=== PATIENT | female | born 1995 | race Caucasian/White ===

== ENCOUNTER 2020-02-04 05:07 | Inpatient (IN) | payer OTHER ==
[2020-02-04] MEDS ORDERED: PROMETHAZINE HCL 25 MG/1 ML VIAL IVPB ONE (06:45)
[2020-02-04] MEDS ORDERED: ELECTROLYTE-148 SOLN 1,000 ML IV SCH (06:45)
[2020-02-04] MEDS ORDERED: BUTORPHANOL TARTRATE 1 MG/ML VIAL IVPB ONE (06:45)
[2020-02-04 06:52] VITALS: BMI 37.9
--- NOTE | 2020-02-04 06:53 | HP ---
Past Medical History - Primary Care Physician PCP:: Zeny Givens - Admission Chief Complaint: Labor History of Present Illness: 24 yo G1 EDC 02/11/2020 EGA 39 weeks admitted due leaking fluid and labor Limitations to Obtaining History: No Limitations - Past Medical History ...: 1 Heme/Onc: Yes: Anemia - Past Surgical History Past Surgical History: Yes: None Hx Myomectomy: No Hx Transabdominal Cerclage: No - Smoking History Have you smoked in the past 12 months: No - Alcohol/Substance Use Hx Alcohol Use: No History of Substance Use: reports: None - Social History Usual Living Arrangement: Yes: With Spouse, With Parent Do you think of yourself as: Straight/Heterosexual History of Recent Travel: No Home Medications - Allergies Allergies/Adverse Reactions: Allergies Allergy/AdvReac Type Severity Reaction Status Date / Time No Known Allergies Allergy Verified 02/04/20 06:16 - Home Medications Home Medications: Ambulatory Orders Ferrous Sulfate [Iron] 1 tab PO DAILY 02/04/20 Pnv No.95/Ferrous Fum/Folic AC [ Vitamin Tablet] 1 tab PO DAILY 02/04/20 Review of Systems - Review of Systems Constitutional: reports: No Symptoms Eyes: reports: No Symptoms HENT: reports: No Symptoms Neck: reports: No Symptoms Cardiovascular: reports: No Symptoms Respiratory: reports: No Symptoms Gastrointestinal: reports: Abdominal Pain Genitourinary: reports: No Symptoms Breasts: reports: No Symptoms Reported Musculoskeletal: reports: No Symptoms Integumentary: reports: No Symptoms Neurological: reports: No Symptoms Endocrine: reports: No Symptoms Hematology/Lymphatic: reports: No Symptoms Psychiatric: reports: No Symptoms Physical Exam - Maternity Constitutional: Yes: Well Nourished, No Distress Neck: Yes: WNL Breast(s): Yes: WNL - Abdominal Exam/OB Fundal Height: 39 Number of Fetuses: Single Presentation: Vertex Contractions: Yes Regularity: Irregular Monitor Mode: External Category: I Decelerations: None - Vaginal Exam/OB Dilatation (cm): 3 Effacement (%): 100 Amniotic Membrane Status: Leaking Amniotic Fluid: Yes: Clear Presentation: Vertex/Position Station: -1 - Physical Exam Musculoskeletal: Yes: WNL Extremities: Yes: WNL Edema: No Psychiatric: Yes: WNL, Alert, Oriented Hemorrhage Risk Assessment - Risk Factors Risk Score: 0 Risk Level: Low Risk Problem List - Problems (1) 39 weeks gestation of Problems reviewed: Yes Code(s): Z3A.39 - 39 WEEKS GESTATION OF (2) Labor established Problems reviewed: Yes Code(s): [id number] - Assessment/Plan IUP a 39 week labor established GBS+ Cat 1 Plan admit GBS protocol ambulate
[2020-02-04] MEDS ORDERED: AMPICILLIN - 2 GM in SODIUM CHLORIDE 100 ML IVPB ONE (07:01)
[2020-02-04] MEDS ORDERED: AMPICILLIN SODIUM 2 GM VIAL ONE (07:13)
[2020-02-04 07:30] LABS: BASO % 0.2 % (0-2.0); EOS % 1.4 % (0-4.5); HEMOGLOBIN 12.5 GM/dL (10.7-15.3); LYMPH % 21.2 % (8-40); MCH 28.8 pg (25.7-33.7); MCHC 33.8 g/dl (32.0-36.0); MEAN CELL VOLUME 85.1 fl (80-96); MEAN PLT VOLUME 8.2 fl (7.5-11.1); NEUT % 72.2 % (42.8-82.8); PLATELET COUNT 258 K/MM3 (134-434); RBC 4.35 M/mm3 (3.60-5.2); RDW 17.7 % (11.6-15.6); WHITE BLOOD COUNT 6.5 K/mm3 (4.0-10.0)
[2020-02-04 07:45] LABS: INR 0.95 (0.83-1.09); PROTHROMBIN TIME (PATIENT) 11.2 SEC (9.7-13.0)
[2020-02-04 07:47] LABS: ACTIVATED PTT 31.3 SECONDS (25.2-36.5)
--- NOTE | 2020-02-04 07:52 | PN ---
Progress Note (short form) - Note Progress Note: Pt desires epidural - will call anesthesia Cat 1 GBS positive CBC WBC 6.5 K/mm3 (4.0-10.0) 02/04/20 06:30 RBC 4.35 M/mm3 (3.60-5.2) 02/04/20 06:30 Hgb 12.5 GM/dL (10.7-15.3) 02/04/20 06:30 Hct 37.0 % (32.4-45.2) 02/04/20 06:30 MCV 85.1 fl (80-96) 02/04/20 06:30 MCH 28.8 pg (25.7-33.7) 02/04/20 06:30 MCHC 33.8 g/dl (32.0-36.0) 02/04/20 06:30 RDW 17.7 % (11.6-15.6) H 02/04/20 06:30 Plt Count 258 K/MM3 (134-434) 02/04/20 06:30 MPV 8.2 fl (7.5-11.1) 02/04/20 06:30 Absolute Neuts (auto) 4.7 K/mm3 (1.5-8.0) 02/04/20 06:30 Neutrophils % 72.2 % (42.8-82.8) 02/04/20 06:30 Lymphocytes % 21.2 % (8-40) 02/04/20 06:30 Monocytes % 5.0 % (3.8-10.2) 02/04/20 06:30 Eosinophils % 1.4 % (0-4.5) 02/04/20 06:30 Basophils % 0.2 % (0-2.0) 02/04/20 06:30 Nucleated RBC % 0 % (0-0) 02/04/20 06:30 Problem List - Problems (1) 39 weeks gestation of Problems reviewed: Yes Code(s): Z3A.39 - 39 WEEKS GESTATION OF (2) Labor established Problems reviewed: Yes Code(s): ABK0328 -
[2020-02-04 07:53] LABS: BLOOD UREA NITROGEN 5.9 mg/dL (7-18); CALCIUM 8.5 mg/dL (8.5-10.1); CREATININE 0.5 mg/dL (0.55-1.3); POTASSIUM 3.8 mmol/L (3.5-5.1)
[2020-02-04] MEDS ORDERED: FENTANYL/BUPIVACAINE/NS/PF - PCEA - 50 ML DISP.SYRIN EP ONE ×3 (07:56→17:28)
[2020-02-04] MEDS ORDERED: METHYLERGONOVINE MALEATE 0.2 MG/1 ML AMP IM PRN (08:11)
[2020-02-04] MEDS ORDERED: WITCH HAZEL 50% (TUCKS) 40 PAD/JAR PAD TP PRN (08:11)
[2020-02-04] MEDS ORDERED: BENZOCAINE 28 GM HEMORRHOIDAL OINTMENT TP PRN (08:11)
[2020-02-04] MEDS ORDERED: BENZOCAINE 20% 57 GM BOTTLE TP PRN (08:11)
[2020-02-04] MEDS ORDERED: BISACODYL 10 MG SUPP.RECT RC PRN (08:11)
[2020-02-04] MEDS: FENTANYL/BUPIVACAINE/NS/PF - PCEA - 50 ML DISP.SYRIN EP SCH (09:05)
[2020-02-04] MEDS ORDERED: NALOXONE HCL 0.4 MG/ML VIAL IVPUSH PRN (10:23)
--- NOTE | 2020-02-04 11:11 | PN ---
Ante-Partal Exam - Subjective Vital Signs: Vital Signs Temperature 97.8 F 02/04/20 10:00 Pulse Rate 97 H 02/04/20 06:38 Respiratory Rate 20 02/04/20 06:38 Blood Pressure 131/79 02/04/20 06:38 O2 Sat by Pulse Oximetry (%) Bleeding: No Headache: No Visual changes: No Right upper quadrant pain: No - Contractions Contractions: Yes - Exam during Labor Variability: Moderate Heart Rate Location: [facility] Category: I Monitor Accelerations: Present Monitor Decelerations: None Exam: Vaginal
[2020-02-04] MEDS ORDERED: OXYTOCIN 30 UNITS in 0.9% NS 30 UNIT/500 ML INFUS.BAG IVPB SCH (11:15)
[2020-02-04] MEDS ORDERED: AMPICILLIN SODIUM 1 GM VIAL ONE ×3 (11:17→18:39)
[2020-02-04] MEDS: AMPICILLIN - 1 GM in SODIUM CHLORIDE 100 ML IVPB SCH ×2 (11:30→15:30)
--- NOTE | 2020-02-04 11:56 | LDN ---
Oxytocin Pre-Use Checklist Date and Time completed: 02/04/20 1111 Physician order on chart: Yes Current history and physical on chart: Yes Indication for induction is documented: Yes record on chart: Yes Pelvis is documented by physician to be clinically adequate: Yes Estimated weight within past week (clinical or sono): Less than 4500 grams in a non-diabetic woman Gestational age is documented: Yes Consent signed: Yes Physician with privileges: is readily available, is documented in the medical record Status of the cervix is assessed and documented: Yes Presentation is assessed and documented: Yes Assessment completed and includes: A minimum of 30 minutes of monitoring is required prior to start
--- NOTE | 2020-02-04 13:57 | PN ---
Ante-Partal Exam - Subjective Subjective: Pt resting comfortably with epidural pitocin on 4 mu Vital Signs: Vital Signs Temperature 97.8 F 02/04/20 10:00 Pulse Rate 60 02/04/20 12:45 Respiratory Rate 17 02/04/20 12:45 Blood Pressure 101/57 L 02/04/20 12:45 O2 Sat by Pulse Oximetry (%) 100 02/04/20 12:45 Bleeding: No Bleeding Description: Moderate Headache: No Visual changes: No Right upper quadrant pain: No - Contractions Contractions: Yes Regularity: Regular Intensity: Mild/Mod Monitor Mode: External - Exam during Labor Variability: Moderate Heart Rate Location: [facility] Category: I Monitor Accelerations: Present Monitor Decelerations: None Exam: Vaginal Dilatation (cm): 5-6 Amniotic Membrane Status: Ruptured Amniotic Fluid: Clear Presentation: Vertex Station: 0 - Intrapartum Hemorrhage Risk Risk Score: 0 Risk Level: Low Risk - Assessment/Plan Assessment/Plan: Active labor
--- NOTE | 2020-02-04 19:23 | PN ---
Ante-Partal Exam - Subjective Subjective: Pt doing well Vital Signs: Vital Signs Temperature 98.6 F 02/04/20 18:00 Pulse Rate 75 02/04/20 18:45 Respiratory Rate 17 02/04/20 18:45 Blood Pressure 132/77 02/04/20 18:45 O2 Sat by Pulse Oximetry (%) 100 02/04/20 18:45 Bleeding: No Headache: No Visual changes: No Right upper quadrant pain: No - Contractions Contractions: Yes Regularity: Regular Intensity: Moderate Monitor Mode: External - Exam during Labor Heart Rate: 145 Variability: Moderate Heart Rate Location: [facility] Category: I Monitor Accelerations: Present Monitor Decelerations: None Exam: Vaginal Dilatation (cm): 10 Effacement (%): 100 Amniotic Membrane Status: Ruptured Presentation: Vertex Station: +1 - Intrapartum Hemorrhage Risk Risk Score: 0 Risk Level: Low Risk - Assessment/Plan Assessment/Plan: 2nd stage of labor Cat 1
[2020-02-04] MEDS ORDERED: OXYTOCIN 20 UNITS in 0.9% NS 20 UNIT/1,000 ML INFUS.BAG IV ONE (21:11)
--- NOTE | 2020-02-04 21:12 | PROC ---
Obstetrical Vaccum Device - Doc. Following Use of Vaccum Device Indications for use: Maternal Exhaustion, Prolonged Second Stage, Failure to Descend Risks and Benefits Explained: Yes Consent on Chart: Yes Station: 2 Molding: Yes Position: OA Caput: No Proper placement of cup confirmed: Yes Number of pulls: 2 Number of pop-offs: 1 Reduction of pressure between contractions: Yes Appearance of head on delivery: Molding Engine Testing Supervisor present during vacuum extraction: No Engine Testing Supervisor & nursery staff notified of vacuum extraction: Yes
--- NOTE | 2020-02-04 21:14 | PN ---
Delivery - Delivery Vaginal Delivery: No Problems, Vacuum Assist Type of Anesthesia: Local, Epidural Episiotomy/Laceration: Right Mediolateral EBL (cc): 250 (body cord) Delivery, Single - Stages of Labor Placenta: Yes: Spontaneous - Condition of Infant Gender: Female Position: OA - Feeding Plan Initial Plan: Exclusive throughout hospitalization
[2020-02-04] MEDS ORDERED: IBUPROFEN 600 MG TABLET (FP) PO ONE (21:16)
[2020-02-04] MEDS ORDERED: ACETAMINOPHEN 325 MG TABLET (FP) ONE (21:16)
[2020-02-04] MEDS ORDERED: OXYTOCIN 20 UNITS in 0.9% NS 20 UNIT/1,000 ML INFUS.BAG IV SCH (21:30)
[2020-02-05] MEDS: AMPICILLIN - 1 GM in SODIUM CHLORIDE 100 ML IVPB SCH (00:09)
--- NOTE | 2020-02-05 04:09 | PN ---
Post Progress Note - Subjective Subjective: 24 yo Para 1 status posts vacuum assisted delivery, seen and evaluated. Doing well. Post Day: 1 Type of Delivery: Vacuum Assist Vag Del Vital Signs: Vital Signs Temperature 97.4 F L 02/05/20 00:17 Pulse Rate 76 02/05/20 00:17 Respiratory Rate 20 02/05/20 00:17 Blood Pressure 129/71 02/05/20 00:17 O2 Sat by Pulse Oximetry (%) 100 02/04/20 19:15 Uterus: Yes: Fundus Firm Abdomen/GI: Yes: Abdomen soft, Tolerating PO Lochia: Yes: Rubra Lochia, amount: Moderate Extremities: Yes: Calves non-tender Activity: Ambulating - Labs Labs: CBC WBC 6.5 K/mm3 (4.0-10.0) 02/04/20 06:30 RBC 4.35 M/mm3 (3.60-5.2) 02/04/20 06:30 Hgb 12.5 GM/dL (10.7-15.3) 02/04/20 06:30 Hct 37.0 % (32.4-45.2) 02/04/20 06:30 MCV 85.1 fl (80-96) 02/04/20 06:30 MCH 28.8 pg (25.7-33.7) 02/04/20 06:30 MCHC 33.8 g/dl (32.0-36.0) 02/04/20 06:30 RDW 17.7 % (11.6-15.6) H 02/04/20 06:30 Plt Count 258 K/MM3 (134-434) 02/04/20 06:30 MPV 8.2 fl (7.5-11.1) 02/04/20 06:30 Absolute Neuts (auto) 4.7 K/mm3 (1.5-8.0) 02/04/20 06:30 Neutrophils % 72.2 % (42.8-82.8) 02/04/20 06:30 Lymphocytes % 21.2 % (8-40) 02/04/20 06:30 Monocytes % 5.0 % (3.8-10.2) 02/04/20 06:30 Eosinophils % 1.4 % (0-4.5) 02/04/20 06:30 Basophils % 0.2 % (0-2.0) 02/04/20 06:30 Nucleated RBC % 0 % (0-0) 02/04/20 06:30 Problem List - Problems (1) Status post vaginal delivery Code(s): [id number] - Assessment/Plan Status post vacuum assisted vaginal delivery Stable Continue routine care
[2020-02-05 07:30] LABS: BASO % 0.2 % (0-2.0); EOS % 0.5 % (0-4.5); HEMOGLOBIN 10.8 GM/dL (10.7-15.3); LYMPH % 13.6 % (8-40); MCH 28.9 pg (25.7-33.7); MCHC 33.8 g/dl (32.0-36.0); MEAN CELL VOLUME 85.3 fl (80-96); MEAN PLT VOLUME 7.6 fl (7.5-11.1); MONO % 5.6 % (3.8-10.2); NEUT % 80.1 % (42.8-82.8); PLATELET COUNT 220 K/MM3 (134-434); RBC 3.75 M/mm3 (3.60-5.2); RDW 17.7 % (11.6-15.6); WHITE BLOOD COUNT 12.1 K/mm3 (4.0-10.0)
[2020-02-05] MEDS: FENTANYL/BUPIVACAINE/NS/PF - PCEA - 50 ML DISP.SYRIN EP SCH (11:57)
[2020-02-05] MEDS: IBUPROFEN 600 MG TABLET (FP) PO PRN (20:06)
[2020-02-05] MEDS: ACETAMINOPHEN 325 MG TABLET (FP) PO PRN (20:07)
[2020-02-06] MEDS: IBUPROFEN 600 MG TABLET (FP) PO PRN (07:40)
[2020-02-06] MEDS: ACETAMINOPHEN 325 MG TABLET (FP) PO PRN (07:41)
--- NOTE | 2020-02-06 09:10 | DS ---
Physical Exam-COMPANION Vital Signs: Vital Signs Temperature 97.3 F L 02/05/20 20:54 Pulse Rate 87 02/05/20 20:54 Respiratory Rate 20 02/05/20 20:54 Blood Pressure 117/72 02/05/20 20:54 O2 Sat by Pulse Oximetry (%) 100 02/04/20 19:15 Constitutional: Yes: Well Nourished Eyes: Yes: Conjunctiva Clear HENT: Yes: Atraumatic Neck: Yes: Supple Cardiovascular: Yes: Regular Rate and Rhythm Respiratory: Yes: Regular Gastrointestinal: Yes: Normal Bowel Sounds ...Rectal Exam: Yes: WNL External Genitalia: Yes: Normal Vaginal Exam: Yes: Normal Cervix: Yes: Normal Uterus: Yes: Firm ....Post : Yes: Uterus firm Extremities: Yes: WNL Neurological: Yes: Alert, Oriented ...Motor Strength: WNL Psychiatric: Yes: Alert, Oriented Labs: CBC, BMP 02/05/20 07:16 02/04/20 06:30 Delivery - Delivery Vaginal Delivery: No Problems, Vacuum Assist Type of Anesthesia: Local, Epidural Episiotomy/Laceration: Right Mediolateral EBL (cc): 250 Delivery, Single - Stages of Labor Date 1st Stage Initiatied: 02/04/20 Time 1st Stage Initiated: 08:00 Date 2nd Stage Initiated: 02/04/20 Time 2nd Stage Initiated: 19:20 Date of Delivery: 02/04/20 Time of Delivery: 20:35 Time Placenta Delivered: 20:37 Placenta: Yes: Spontaneous - Condition of Infant Concrete Engineering Technician/Patient Navigator Present: No Gender: Female Weight: 6 lb 9 oz Position: OA Total Hours ROM (Hrs/Mins): 8h15m - 1 Minute Total Score: 9 5 Minutes Total Score: 9 - Feeding Plan Initial Plan: Exclusive throughout hospitalization Discharge Summary Problems reviewed: Yes Reason For Visit: LABOR ADMIT Current Active Problems 39 weeks gestation of (Acute) Labor established (Acute) Status post vaginal delivery (Acute) Procedures: Principal: Normal vaginal delivery Hospital Course: Routine care Health Concerns: None Plan of Treatment: F/U with MD in 6 weeks Goals: Resume regular activities in 6 weeks Condition: Good - Instructions Diet, Activity, Other Instructions: Physical activity Resume your normal everyday activity as tolerated no heavy lifting or exercise until seen by your surgeon. You may walk unlimited germán of and climb stairs. You may resume driving the car when you feel safe and comfortable behind the wheel. No sexual activity as instructed. Wound care If you have a bandage, leave it on, and keep dry for 48-72 hours. After that time discard the outer bandage. If they are tapes on the skin under the out of bandage leave them in place. They will peel off in the next 7 to 10 days. Do Not Peel them off. You may shower the day after surgery. If there are tapes present on the skin, you may shower over them. Diet There are no dietary restrictions. Eat healthy, high-fiber foods. Drink 6 to 8 glasses of liquid each day. This will assist in keeping your bowels are regular. Pain management You may take Tylenol or acetaminophen or Ibuprofen (for example, Motrin, Advil etc.) from my pain prescription medication is ordered should be taken as prescribed for moderate to severe pain. Call MD for any of the following: Severe pain not relieved by medication Fever of 101 or higher Excessive bleeding or drainage on dressing Inability to urinate Referrals: Zeny Givens MD [Staff Physician] - Disposition: HOME - Home Medications Comprehensive Discharge Medication List: Ambulatory Orders Ferrous Sulfate [Iron] 1 tab PO DAILY 02/04/20 Ibuprofen [Motrin -] 600 mg PO QID #28 tablet 02/04/20 Pnv No.95/Ferrous Fum/Folic AC [ Vitamin Tablet] 1 tab PO DAILY 02/04/20
[2020-02-06 09:21] LABS: POC NITRAZINE NEG
[2020-02-06 10:44] VITALS: BP 133/85; PULSE 77; TEMP 97.6
== END 2020-02-06 13:45 | disposition home or self-care (01) | DRG 560 ==
LOC: JLDR 05:07 → J3W 23:43
PROVIDERS: ADMIT Obstetrics & Gynecology; ATTEND Obstetrics & Gynecology
PROC: 10D07Z6 Extraction of Products of Conception, Vacuum, Via Natural or Artificial Opening (ICD-10-PCS; principal; 2020-02-04)
PROC: 0W8NXZZ Division of Female Perineum, External Approach (ICD-10-PCS; 2020-02-04)
DX: O62.1 Secondary uterine inertia (principal); Z3A.39 39 weeks gestation of pregnancy; Z22.330 Carrier of Group B streptococcus; Z37.0 Single live birth
CPT/HCPCS: 36415; 36600; 59409; 80048; 82803; 83986-QW; 85025; 85610; 85730; 86593; 86850; 86900; 86901; 87389